=== PATIENT | female | born 1950 | race Caucasian/White ===

== ENCOUNTER 2017-02-17 14:04 | Emergency (ER) | payer OTHER ==
[~2017-02-17] VITALS: Ht 154.9 cm; Wt 112.0 kg
[~2017-02-17 14:04] MED LIST: CALC-1118 PO; METF500T PO; SYN.075 PO
[2017-02-17 14:13] VITALS: BP 158/72
--- NOTE | 2017-02-17 15:54 | NUR ---
Patient ambulated to bed 03.
--- NOTE | 2017-02-17 16:00 | NUR ---
67F BIB SELF C/O LEFT LEG PAIN S/P FALL X 5 DAYS AGO; PT STATES FELL ON A STAGE AT [facility]; DENIES LOC AT THIS TIME; BRUISE NOTED TO LEFT CALF AT THIS TIME; PT C/O ACHING LEFT LEG PAIN, NON-RADIATING, 6/10 X 5 DAYS. LEFT CAP REFILL < 3 SECONDS, LEFT PEDAL PULSE PALPABLE, NO LOSS OF SENSATION TO TO LEFT LEG AT THIS TIME; PT A&OX4, PERRL, BL LUNG SOUNDS CLEAR, RR EVEN/UNLABORED, SKIN IS WARM/DRY/INTACT AT THIS TIME; PT DENIES N/V/D AT THIS TIME; PT RESTING IN BED W/ HOB ELEVATED AND IN LOWEST POSITION; POSITIONED FOR COMFORT; ER MD MADE AWARE OF STATUS. WILL CONTINUE TO MONITOR.
--- NOTE | 2017-02-17 16:00 | NUR ---
Note undone in EDM - 02/17/17 at 1611 by MEDREJI 67F BIB SELF C/O LEFT LEG PAIN S/P FALL X 5 DAYS AGO; PT STATES FELL ON A STAGE AT [facility]; DENIES LOC AT THIS TIME; BRUISE NOTED TO LEFT CALF AT THIS TIME; LEFT CAP REFILL < 3 SECONDS, LEFT PEDAL PULSE PALPABLE, NO LOSS OF SENSATION TO TO LEFT LEG AT THIS TIME; PT A&OX4, PERRL, BL LUNG SOUNDS CLEAR, RR EVEN/UNLABORED, SKIN IS WARM/DRY/INTACT AT THIS TIME; PT DENIES N/V/D AT THIS TIME; PT RESTING IN BED W/ HOB ELEVATED AND IN LOWEST POSITION; POSITIONED FOR COMFORT; ER MD MADE AWARE OF STATUS. WILL CONTINUE TO MONITOR.
--- NOTE | 2017-02-17 17:19 | NUR ---
Dr. Valiente evaluating patient at bedside.
[2017-02-17 17:31] VITALS: BP 148/58
--- NOTE | 2017-02-17 17:31 | NUR ---
Patient discharged with v/s stable. Written and verbal after care instructions given and explained. Patient verbalized understanding. Ambulatory with steady gait. All questions addressed prior to discharge. Advised to follow up with PMD.
== END 2017-02-17 17:31 | disposition home or self-care (01) ==
LOC: MED 14:04
DX: S80.02XA Contusion of left knee, initial encounter (principal); W19.XXXA Unspecified fall, initial encounter; Y93.89 Activity, other specified; Y92.89 Other specified places as the place of occurrence of the external cause; Y99.8 Other external cause status
CPT/HCPCS: 73562; 99284

== ENCOUNTER 2018-03-20 21:25 | Inpatient (IN) | payer OTHER ==
[~2018-03-20] VITALS: Ht 154.9 cm; Wt 120.7 kg
[~2018-03-20 21:25] MED LIST changes: -CALC-1118 PO; -METF500T PO
[2018-03-20 21:33] VITALS: BP 152/68
--- NOTE | 2018-03-20 21:37 | NUR ---
TO BED # 11 AMBULATORY, REPORT GIVEN TO FLORENCE SMITH.
--- NOTE | 2018-03-20 21:43 | NUR ---
pt c/o abd pain starting since 1830, describes it as 8/10 aching epigastric pain. No complaints of N/V/D, LBM today. Hx of thyroid disorder. Patient placed in gown and monitor, will continue to assess.
--- NOTE | 2018-03-20 21:52 | NUR ---
Dr. Echeverria evaluating patient at bedside.
[2018-03-20] MEDS ORDERED: MORPHINE SULFATE 4 MG/ML SYR IVP ONE (21:55)
[2018-03-20] MEDS ORDERED: ONDANSETRON 4 MG/2 ML VIAL IVP ONE (21:55)
--- NOTE | 2018-03-20 22:14 | NUR ---
No dalton in [facility] - 03/20/18 at 2216 by ROBINSON X-Ray at bedside.
[2018-03-20] MEDS ORDERED: DICYCLOMINE HCL LIQUID 20 MG, ALUMINUM HYD/MAG/SIMETHICONE 30 ML, LIDOCAINE VISCOUS 2% ... PO ONE ×3 (22:15)
--- NOTE | 2018-03-20 22:35 | NUR ---
X-Ray at bedside.
[2018-03-20 22:36] LABS: HEMATOCRIT 37.2 % (36-48); HEMOGLOBIN 12.5 g/dL (12.0-16.0); MEAN CORPUSCULAR HEMOGLOBIN 36 pg (27-31); MEAN CORPUSCULAR HGB CONC 34 g/dL (33-37); MEAN CORPUSCULAR VOLUME 105.7 fL (80-94); PLATELET COUNT (AUTO) 57 K/uL (140-450); RED BLOOD CELL COUNT(AUTO) 3.52 MIL/uL (4.20-5.40); RED CELL DISTRIBUTION WIDTH 14.6 % (11.6-13.7); WHITE BLOOD COUNT (AUTO) 7.7 K/uL (4.8-10.8)
[2018-03-20 22:43] LABS: APPEARANCE,URINE CLEAR (CLEAR); BILIRUBIN,URINE 1+ (NEGATIVE); BLOOD, URINE TRACE-I (NEGATIVE); COLOR,URINE YELLOW (YELLOW); LEUKOCYTE ESTERASE ,URINE NEGATIVE (NEGATIVE); NITRITE, URINE NEGATIVE (NEGATIVE); UGLUCOSE NEGATIVE (NEGATIVE)
[2018-03-20 22:45] LABS: CARBON DIOXIDE 27.8 mmol/L (21-32); CREATININE 0.7 mg/dL (0.6-1.3); POTASSIUM 3.8 mmol/L (3.5-5.1)
[2018-03-20 22:51] LABS: ALBUMIN 2.5 g/dL (3.4-5.0); TOTAL BILIRUBIN 4.2 mg/dL (0.0-1.0)
[2018-03-20 22:54] LABS: RBC,URINE 0-5 (RARE) /HPF (0-5); WBC,URINE 0-5 (RARE) /HPF (0-5)
[2018-03-20 22:55] LABS: CALCIUM OXALATE CRYSTALS,UR 0-10 /HPF (None Seen)
[2018-03-20 23:06] LABS: EOSINOPHILS % (MANUAL) 3 % (0-4); LYMPHOCYTES % (MANUAL) 20 % (20-46); MONOCYTES % (MANUAL) 8 % (5-12)
--- NOTE | 2018-03-20 23:33 | NUR ---
PT TO CT
--- NOTE | 2018-03-20 23:49 | NUR ---
PT RETURN FROM RADIOLOGY
--- NOTE | 2018-03-20 23:56 | NUR ---
Ultrasound at bedside.
--- NOTE | 2018-03-21 00:20 | NUR ---
PT HAD ONE EPISODE OF BILE EMESIS, NO NAUSEA NOTED.
[2018-03-21] MEDS ORDERED: ONDANSETRON 4 MG/2 ML VIAL IVP ONE (00:45)
--- NOTE | 2018-03-21 00:52 | NUR ---
PT HAD 1 EPISODE OF BILE EMESIS, C/O NAUSEA, MD MADE AWARE AND ZOFRAN ORDERED AND GIVEN.
--- NOTE | 2018-03-21 01:36 | NUR ---
PT STILL NAUSEUS, ER MD MADE AWARE.
[2018-03-21] MEDS ORDERED: HYDROcodone/APAP 7.5/325 MG 1 TAB PO PRN (02:50)
[2018-03-21] MEDS ORDERED: DOCUSATE SODIUM 100 MG GELCAP PO PRN (02:50)
[2018-03-21] MEDS ORDERED: ONDANSETRON 4 MG/2 ML VIAL IM/IVP PRN (02:50)
[2018-03-21] MEDS ORDERED: MORPHINE SULFATE 2 MG/ML SYR IVP PRN (02:50)
--- NOTE | 2018-03-21 02:51 | NUR ---
PT ON STRETCHER IN NO ACUTE DISTRESS, NO COMPLAINTS.
[2018-03-21 03:08] LABS: PROTHROMBIN TIME 14.4 secs (10.8-13.4)
--- NOTE | 2018-03-21 03:10 | NUR ---
Patient will be admitted to care of [facility]. Admited to TELE. Will go to room 121 B. Belongings list completed. Report to BRUCE SMITH.
[2018-03-21 03:19] LABS: CHOL/HDL RATIO 2.8 (1-4.5); MAGNESIUM 1.6 mg/dL (1.8-2.4); PHOSPHORUS 3.8 mg/dL (2.5-4.9); THYROID STIMULATING HORMONE 0.61 uIU/mL (0.34-3.74)
--- NOTE | 2018-03-21 03:20 | NUR ---
RECEIVED REPORT FROM ED NURSE. PT IN STABLE CONDITION. WILL CONTINUE TO MONITOR.
--- NOTE | 2018-03-21 03:25 | NUR ---
INITIAL ASSESSMENT COMPLETE. EYES 3MM TO 2MM BRISK REACTION PERRL. HEART SOUNDS S1 S2 NORMAL. LUNGS CLEAR BILATERALLY. BOWEL SOUNDS PRESENT X4 QUADRANTS. MIDLINE EPIGASTRIC PAIN WHEN PALPATING. SKIN WARM, DRY, AND INTACT. CAP REFILL < 3S. NO EDEMA PRESENT. PT STATES NO PAIN. EKG SHOWS NSR. VS STABLE. PT IN NO ACUTE DISTRESS. SAFETY MEASURES TAKEN. BED LOCKED IN LOW POSITION. CALL BORREGO WITHIN REACH. WILL CONTINUE TO MONITOR.
[2018-03-21] MEDS ORDERED: PROMETHAZINE 25 MG/ML VIAL IM PRN (03:30)
[2018-03-21] MEDS ORDERED: MAG SULF 2000 MG/WATER PREMIX 50 ML IV ONE (03:45)
[2018-03-21 04:00] VITALS: BP 120/44
[2018-03-21] MEDS: NACL 0.9% 1,000 ML IV SCH ×4 (04:05→16:07)
--- NOTE | 2018-03-21 04:10 | NUR ---
PRESCRIBED MAG FOR LEVEL OF 1.6. MAG GIVEN IV. PT TOLERATING WELL. WILL CONTINUE TO MONITOR.
[2018-03-21 06:39] LABS: ANION GAP 6.8 (8-16); CARBON DIOXIDE 29.1 mmol/L (21-32); CREATININE 0.7 mg/dL (0.6-1.3); POTASSIUM 3.9 mmol/L (3.5-5.1)
[2018-03-21 06:56] LABS: MAGNESIUM 1.7 mg/dL (1.8-2.4); PHOSPHORUS 3.9 mg/dL (2.5-4.9)
--- NOTE | 2018-03-21 07:09 | NUR ---
ENDORSED PT TO DAY SHIFT RN FOR CONTINUITY OF CARE. PT IN STABLE CONDITION.
--- NOTE | 2018-03-21 07:10 | NUR ---
PT IS AWAKE AND ORIENTED. INTRODUCED MYSELF AND UPDATED THE BOARD. IV ON R FA 20G, NS 150ML/HR INFUSING. SKIN INTACT. PT FREQUENTLY AMBULATES TO THE BATHROOM. WILL BE BACK TO ASSESS PT.
[2018-03-21 08:00] VITALS: BP 148/46
--- NOTE | 2018-03-21 08:00 | NUR ---
PT V/S WITHIN NORMAL RANGE. DENIES PAIN BUT IS NAUSEATED AND IS VOMITING. WILL GIVE ZOFRAN ALONG WITH MORNING MEDS. DR DISLA CALLED RE LABS. GAVE HIM INFORMATION.
[2018-03-21] MEDS: LEVOTHYROXINE 0.075 MG TAB PO SCH (08:31)
[2018-03-21] MEDS: FUROSEMIDE 20 MG TAB PO SCH (08:31)
--- NOTE | 2018-03-21 08:35 | NUR ---
ADMINISTERED MORNING MEDS. PT TOLERATED WELL. ADMINISTERED ZOFRAN FOR NAUSEA. EMESIS ABOUT 100ML. WILL CONTINUE TO MONITOR PT.
--- NOTE | 2018-03-21 08:51 | NUR ---
PATIENT HAS BEEN SCREENED AND CATEGORIZED HIGH NUTRITION RISK. PATIENT WILL BE SEEN WITHIN 1-2 DAYS OF ADMISSION. 03/21/18 -03/22/[address]
[2018-03-21] MEDS ORDERED: MAGNESIUM OXIDE 400 MG TAB PO SCH (09:11)
--- NOTE | 2018-03-21 09:29 | NUR ---
FAXED INITIAL REVIEW TO [facility] [phone] PHONE [phone]
--- NOTE | 2018-03-21 10:40 | NUR ---
PT VOMITED AGAIN. WILL GIVE PHENERGAN. WILL NEED TO ASK MD TO SWITCH FROM IM TO IVP. ONCE CHANGED. WILL GIVE. DR FARLEY IS WITH PT, ASSESSING PT. WILL CONTINUE TO MONITOR PT.
[2018-03-21] MEDS ORDERED: PROMETHAZINE 25 MG/ML VIAL IM/IVP PRN (11:05)
--- NOTE | 2018-03-21 11:50 | NUR ---
ADMINISTERED PHENERGAN. PT TOLERATED WELL. WILL F/U WITH PT.
[2018-03-21 12:00] VITALS: BP 112/44
--- NOTE | 2018-03-21 13:10 | NUR ---
VISITING WITH FAMILY. NO SIGNS OF DISTRESS. WILL CONTINUE TO MONITOR PT.
--- NOTE | 2018-03-21 15:16 | NUR ---
NO NAUSEA. NO PAIN. NO COMPLAINTS. RESTING COMFORTABLY. STILL AWAITING DR. MCINTOSH'S ARRIVAL. WILL CONTINUE TO MONITOR PT.
[2018-03-21 16:00] VITALS: BP 107/41
--- NOTE | 2018-03-21 19:00 | NUR ---
PT C/O PAIN IN ABD. ADMINISTERED NORCO. PT TOLERATED WELL. WILL CONTINUE TO MONITOR PT.
--- NOTE | 2018-03-21 19:15 | NUR ---
ENDORSED PT TO THE LAVATORY ATTENDANT NURSE AT BEDSIDE FOR CONTINUITY OF CARE. PT IS IN STABLE CONDITION.
--- NOTE | 2018-03-21 19:30 | NUR ---
RECEIVED PT REPORT AT BEDSIDE FROM DAYSFLFT NURSE FOR CONTINUITY OF CARE. PT AAOX4. NO S/S OF DISTRESS NO SOB. ON RA. PT IV NOTED RFA 20G NS 150ML. BED LOWERED CALL LIGHT WITHIN REACH WILL CONTINUE TO MONITOR.
[2018-03-21 20:00] VITALS: BP 120/49
--- NOTE | 2018-03-21 23:00 | NUR ---
PAIN MED EFFECTIVE PT SLEEPING
[2018-03-22] VITALS: BP 113/63
--- NOTE | 2018-03-22 00:10 | NUR ---
PER CHARGE NURSE: GI DR NEED TO DO SX. WILL CONTINUE TO MONITOR.
[2018-03-22] MEDS: NACL 0.9% 1,000 ML IV SCH ×2 (01:35→08:00)
--- NOTE | 2018-03-22 01:48 | NUR ---
PT SLEEPING. NO SOB NO S/S OF DISTRESS. WILL CONTINUE TO MONITOR.
[2018-03-22 04:00] VITALS: BP 103/37
--- NOTE | 2018-03-22 07:20 | NUR ---
GAVE REPORT TO DAYSHIFT NURSE FOR CONTINUITY OF CARE.
--- NOTE | 2018-03-22 07:40 | NUR ---
PATIENT AWAKE, ALERT. RESPIRATION EVEN, UNLABOR ON ROOM AIR. SKIN DRY AND WARM. IV IS INFILTRATED, IVF WAS STOPPED, WILL INSERT A NEW ONE. DENIED ABDOMINAL PAIN, N/V AT THIS TIME. PLAN OF CARE WAS DISCUSSED WITH PATIENT, BED AT LOW POSITION, SIDE RAILS UP. CALL LIGHT WITHIN REACH.
[2018-03-22 08:00] VITALS: BP 129/52
[2018-03-22] MEDS: FUROSEMIDE 20 MG TAB PO SCH (08:52)
[2018-03-22] MEDS: LEVOTHYROXINE 0.075 MG TAB PO SCH (08:52)
--- NOTE | 2018-03-22 10:00 | NUR ---
IV WAS REMOVED FROM RIGHT FA, CATHETER INTACT, NO ACTIVE BLEEDING SEEN. PATIENT TOLERATED WELL
--- NOTE | 2018-03-22 10:01 | NUR ---
FAXED CONCURRENT REVIEW TO [facility] [phone] PHONE [phone]
[2018-03-22 11:36] LABS: BASOPHILS % (AUTO) 1.1 % (0.0-2.0); EOSINOPHILS # (AUTO) 0.2 K/uL (0-0.4); EOSINOPHILS % (AUTO) 4.6 % (0.0-4.0); HEMATOCRIT 33.5 % (36-48); HEMOGLOBIN 11.2 g/dL (12.0-16.0); LYMPHOCYTES # (AUTO) 1.1 K/uL (2.5-16.5); LYMPHOCYTES % (AUTO) 28.1 % (20.5-51.1); MEAN CORPUSCULAR HEMOGLOBIN 36 pg (27-31); MEAN CORPUSCULAR HGB CONC 34 g/dL (33-37); MEAN CORPUSCULAR VOLUME 107.5 fL (80-94); MONOCYTES # (AUTO) 0.7 K/uL (0.8-1.0); MONOCYTES % (AUTO) 18.1 % (1.7-9.3); NEUTROPHILS # (AUTO) 1.9 K/uL (1.8-7.7); NEUTROPHILS % (AUTO) 48.1 % (42.2-75.2); PLATELET COUNT (AUTO) 47 K/uL (140-450); RED BLOOD CELL COUNT(AUTO) 3.12 MIL/uL (4.20-5.40); RED CELL DISTRIBUTION WIDTH 14.8 % (11.6-13.7)
--- NOTE | 2018-03-22 11:38 | NUR ---
PATIENT AWAKE, ALERT. RESPIRATION EVEN, UNLABOR ON ROOM AIR. SKIN DRY AND WARMM. VS IS STABLE. DENIED PAIN, N/V. NO DISTRESS NOTED AT THIS TIME. CALL LIGHT WITHIN REACH
[2018-03-22 11:45] LABS: ANION GAP 8.1 (8-16); CARBON DIOXIDE 29.8 mmol/L (21-32); CREATININE 0.8 mg/dL (0.6-1.3); POTASSIUM 3.9 mmol/L (3.5-5.1)
[2018-03-22 12:00] VITALS: BP 121/68
[2018-03-22 12:20] LABS: T4 (THYROXINE) 7.2 ug/dL (4.5-12.0)
[2018-03-22] MEDS ORDERED: BOWEL EVACUANT DRINK 4,000 ML PDS PO SCH (12:44)
[2018-03-22] MEDS ORDERED: MAGNESIUM CITRATE 300 ML BTL PO SCH (12:45)
--- NOTE | 2018-03-22 13:19 | NUR ---
CALLED [facility] AND SPOKE WITH LUPE. I ASKED TO TO TELL KASHIF THAT THIS PATIENT WILL BE HAVING A HIDA SCAN TODAY AND AN EGD AND COLONOSCOPY TOMORROW.. PHONE [phone].
--- NOTE | 2018-03-22 13:57 | NUR ---
PROCEDURE CONSENTS WERE OBTAINED AT BEDSIDE, SIGNED BY PATIENT. PATIENT VERBALIZED UNDERSTANDING RISKS AND BENEFITS OF PROCEDURES.
[2018-03-22] MEDS: SENNA 8.6 MG TAB PO SCH ×2 (14:12→17:11)
--- NOTE | 2018-03-22 14:47 | NUR ---
03/22/18 RD INITIAL ASSESSMENT COMPLETED PLEASE REFER TO NUTRITION ASSESSMENT UNDER CARE ACTIVITY FOR ESTIMATED NUTRITIONAL NEEDS. 1. CONTINUE FULL LIQUID DIET TOLERATED 2. PROVIDE NUTRITION EDUCATION FOR GALLSTONES AND CIRRHOSIS 3. RD TO FOLLOW-UP 2-3 DAYS, HIGH RISK GUSTAVO GAN, RD
[2018-03-22 16:00] VITALS: BP 133/44
--- NOTE | 2018-03-22 16:10 | NUR ---
PATIENT AWAKE, ALERT. RESPIRATION EVEN, UNLABOR ON ROOM AIR. SKIN DRY AND WARM. VS IS STABLE. DENIED PAIN, N/V AT THIS TIME. NO DISTRESS NOTED. FAMILY AT BEDSIDE. CALL LIGHT WITHIN REACH
--- NOTE | 2018-03-22 18:27 | NUR ---
PATIENT IS AWAKE, ALERT. RESPIRATION EVEN, UNLABOR ON ROOM AIR. NO DISTRESS NOTED AT THIS TIME. CALL LIGHT WITHIN REACH
--- NOTE | 2018-03-22 19:25 | NUR ---
ENDORSEMENT GIVEN TO THE GETTERING FILAMENT MACHINE OPERATOR NURSE. PATIENT IS STABLE AT THIS TIME.
--- NOTE | 2018-03-22 19:26 | NUR ---
RECEIVED REPORT FROM DAYSHIFT NURSE AT BEDSIDE FOR CONTINUITY OF CARE. PT IS AAOX4. IV NOTED LAC20 HEP LOCK. NO SOB NO S/S OF DISTRESS. ON RA. PT IS AMBULATORY. BED LOWERED CALL LIGHT WITHIN REACH. WILL CONTINUE TO MONITOR.
[2018-03-22 20:00] VITALS: BP 151/52
[2018-03-22] MEDS: LACTULOSE 20 GM/30 ML UDC PO SCH (20:05)
--- NOTE | 2018-03-22 21:26 | NUR ---
PT SITTING IN BED FINISHING HER BOWEL PREP PT IS AWARE OF NPO AFTER MIDNIGHT.
[2018-03-23] VITALS (7 sets, daily range): BP systolic 114–146; BP diastolic 42–60
--- NOTE | 2018-03-23 00:30 | NUR ---
PT IS SLEEPING. NO SOB, NO S/S OF DISTRESS. WILL CONTINUE TO MONITOR.
[2018-03-23 06:36] LABS: BASOPHILS % (AUTO) 1.1 % (0.0-2.0); EOSINOPHILS # (AUTO) 0.3 K/uL (0-0.4); EOSINOPHILS % (AUTO) 5.6 % (0.0-4.0); HEMATOCRIT 33.8 % (36-48); HEMOGLOBIN 11.5 g/dL (12.0-16.0); LYMPHOCYTES # (AUTO) 1.6 K/uL (2.5-16.5); LYMPHOCYTES % (AUTO) 35.1 % (20.5-51.1); MEAN CORPUSCULAR HEMOGLOBIN 36 pg (27-31); MEAN CORPUSCULAR HGB CONC 34 g/dL (33-37); MEAN CORPUSCULAR VOLUME 106.8 fL (80-94); MONOCYTES # (AUTO) 0.8 K/uL (0.8-1.0); NEUTROPHILS # (AUTO) 1.9 K/uL (1.8-7.7); NEUTROPHILS % (AUTO) 41.2 % (42.2-75.2); PLATELET COUNT (AUTO) 52 K/uL (140-450); RED BLOOD CELL COUNT(AUTO) 3.17 MIL/uL (4.20-5.40); RED CELL DISTRIBUTION WIDTH 14.8 % (11.6-13.7); WHITE BLOOD COUNT (AUTO) 4.6 K/uL (4.8-10.8)
[2018-03-23 06:57] LABS: CREATININE 0.7 mg/dL (0.6-1.3)
[2018-03-23 07:08] LABS: TOTAL BILIRUBIN 2.7 mg/dL (0.0-1.0)
--- NOTE | 2018-03-23 07:36 | NUR ---
GAVE REPORT TO DAYSHIFT NURSE AT BEDSIDE FOR CONTINUITY OF CARE.
--- NOTE | 2018-03-23 07:48 | NUR ---
PATIENT TAKEN OFF UNIT TO HAVE HIDA SCAN DONE AT THIS TIME, PT LEFT IN STABLE CONDITION.
--- NOTE | 2018-03-23 07:50 | NUR ---
RECEIVED A PHONE CALL FROM [email or web address], SHE WAS CALLING TO LET ME KNOW THE PATIENT WAS FEELING ANXIOUS AND WAS NOT ABLE TO DO THE HIDA. I LET HER KNOW I WOULD ASK THE DOCTOR IF HE COULD ORDER SOMETHING FOR ANXIETY.
[2018-03-23] MEDS ORDERED: LORazepam 2 MG/ML VIAL IM/IVP PRN (08:00)
--- NOTE | 2018-03-23 08:04 | NUR ---
PATIENT ENDORSED FROM SPOT CHECKER NURSE. PATIENT AWAKE AND IN BED, A&O X4, no notable distress. V/S TAKEN. EXPLAINED THAT SHE WILL BE GOING TO GI LAB THIS MORNING. ASKED ABOUT PLAN OF CARE. PLAN OF CARE REVIEWED AND TOLD IF SHE HAS ANY CONCERNS OR QUESTIONS TO LET HEALTH CARE TEAM KNOW SO APPROPRIATE EDUCATION AND REASSURANCES CAN BE GIVEN, PATIENT STATED, "OKAY THANK YOU".
--- NOTE | 2018-03-23 08:19 | NUR ---
WALKED OVER TO NUCLEAR MED TO ADMINISTER ATIVAN 1MG, IVP. PT TOLERATED WELL. PT PENDING TO HAVE HIDA SCAN DONE.
--- NOTE | 2018-03-23 08:50 | NUR ---
RECEIVED A PHONE CALL FROM [employer], SHE WAS CALLING TO LET ME KNOW THE PATIENT WAS FEELING ANXIOUS AND WAS NOT ABLE TO DO THE HIDA. I LET HER KNOW I WOULD ASK THE DOCTOR IF HE COULD ORDER SOMETHING FOR ANXIETY. Addendum: 03/23/18 at 0908 by Delma Nicole RN EPPS TIME ENTRY.
--- NOTE | 2018-03-23 09:35 | NUR ---
WALKED OVER TO [employer] [facility] TO ADMINISTER MORPHINE IVP FOR THE HIDA SCAN. PT TOLERATED WELL.
--- NOTE | 2018-03-23 09:53 | NUR ---
PATIENT STILL IN GI LAB, DUE MEDICATIONS WILL BE GIVEN WHEN PATIENT IS BACK IN ROOM.
--- NOTE | 2018-03-23 10:30 | NUR ---
PATIENT IN BED V/S STABLE 0/10 PAIN, RR 16, 130/55, 96% RA, 56 BPM (@ BASELINE), 98.1 F. 0900 MEDICATIONS GIVEN.
--- NOTE | 2018-03-23 10:45 | NUR ---
PATIENT RETURNED TO UNIT VIA WHEELCHAIR FROM HIDA SCAN. PT STABLE AT THIS TIME.
[2018-03-23] MEDS: LACTULOSE 20 GM/30 ML UDC PO SCH ×2 (10:54→20:30)
[2018-03-23] MEDS: SPIRONOLACTONE 50 MG TAB PO SCH (10:54)
[2018-03-23] MEDS: SENNA 8.6 MG TAB PO SCH ×2 (10:55→12:51)
[2018-03-23] MEDS: LEVOTHYROXINE 0.075 MG TAB PO SCH (10:55)
[2018-03-23] MEDS: FUROSEMIDE 20 MG TAB PO SCH (10:55)
--- NOTE | 2018-03-23 12:45 | NUR ---
PATIENT RESTING IN BED. DUE MEDICATION GIVEN. CALL LIGHT WITHIN REACH, PILLOW PLACED UNDER RIGHT ARM FOR COMFORT. TOLD THAT SHE IS SCHEDULED TO BE D/C TOMORROW AFTER GI PROCEDURES ARE COMPLETED. PATIENT CLAIMS SHE HAS NO QUESTIONS ABOUT PLAN OF CARE. WILL CONTINUE WITH HOURLY ROUNDS.
[2018-03-23] MEDS ORDERED: MIDAZOLAM 2 MG/2 ML VIAL ONE ×2 (13:58)
[2018-03-23] MEDS ORDERED: fentaNYL 0.05 MG/ML VIAL ONE (13:58)
[2018-03-23] MEDS ORDERED: diphenhydrAMINE 50 MG/ML VIAL ONE (13:59)
[2018-03-23 14:56] LABS: ALBUMIN 2.3 g/dL (3.4-5.0); BILIRUBIN,DIRECT 0.9 mg/dL (0.0-0.3); TOTAL BILIRUBIN 2.7 mg/dL (0.0-1.0)
[2018-03-23] MEDS ORDERED: fentaNYL 0.05 MG/ML VIAL IVP ONE (15:00)
[2018-03-23] MEDS ORDERED: MIDAZOLAM 2 MG/2 ML VIAL IVP ONE (15:00)
--- NOTE | 2018-03-23 15:08 | NUR ---
Clinical review faxed to Mily at [phone] Addendum: 03/23/18 at 1511 by Zaria Gonzalez CM correction of the phone number. faxed to [facility]ily at [phone]
--- NOTE | 2018-03-23 15:10 | NUR ---
RECEIVED PATIENT TO UNIT FROM GI NURSE. PATIENT IS RESTING IN BED IN HIGH FOWLERS. PLACED ON O2 @ 2L/MIN NC FOR COMFORT. PATIENT IS DROWSY BUT AROUSAL WILL CONTINUE TO MONITOR V/S Q 15 FOR THE FIRST HOUR THAN PRN. CALL LIGHT WITHIN REACH, BED IN LOWEST POSITION, AND TWO SIDE RAILS UP. WILL CONTINUE HOURLY ROUNDS. Addendum: 03/23/18 at 1537 by Lesvia Welch RN ABDOMEN IS DISTENDED AND FIRM. PATIENT IS PASSING GAS. EDUCATED TO PASS GAS TO HELP RELIEVE PAIN.
--- NOTE | 2018-03-23 15:50 | NUR ---
RECEIVED PHONE CALL FROM DR. MCINTOSH. PER DR. MCINTOSH PT SHOWED GO HOME ON THESE MEDICATIONS: PROTONIX OR OMEPRAZOLE 40MG, PO, DAILY, LASIX 20MG, PO 1 TAB DAILY, ALDACTONE 50MG, PO 1 TAB DAILY, LACTULOSE 20GM PO BID, PROPANOLOL 30MG TID.
--- NOTE | 2018-03-23 16:55 | NUR ---
PATIENT HAD 2 BM. 1ST: WATERY AND LIGHT BROWN. 2ND: FORMED AND BROWN. ABDOMEN IS SOFT BUT STILL DISTENDED. PATIENT IS STILL PASSING GAS. ORDERED DINNER AND WAS TAKEN OFF O2 @ 2L/MIN. PATIENT V/S ARE STABLE AND SHE IS ALERT AND ORIENTATED X4. WILL CONTINUE TO MONITOR. Addendum: 03/23/18 at 1657 by Lesvia Welch RN PATIENT AMBULATED TO RESTROOM 2 TIMES AND TOLERATED WELL
--- NOTE | 2018-03-23 17:28 | NUR ---
WILL CONTINUE PLAN OF CARE Addendum: 03/23/18 at 1729 by Lesvia Welch RN Amended: Links added.
--- NOTE | 2018-03-23 18:45 | NUR ---
PATIENT CLAIMS IV SITE ON LEFT AC WAS BURNING AND PATIENT ASKED TO REMOVE SALINE LOCK TO A DIFFERENT LOCATION. IV SITE IS BECOMING RED AND SWOLLEN, SLIGHT ECCHYMOSIS NOTED. IV IN LEFT AC REMOVED, CATH INTACT AND BLEEDING CONTROLLED. NEW IV STARTED ON RIGHT HAND, 24 GAUGE, AND PATENT. PATIENT ATE 75% OF DINNER AND CONTINUES TO PASS GAS.
--- NOTE | 2018-03-23 19:15 | NUR ---
PATIENT ENDORSED TO CUSTOMER SUPPORT TECHNICIAN NURSE. WILL CONTINUE PLAN OF CARE. PATIENT CLAIMS SHE HAS NO QUESTIONS REGARDING HER PLAN OF CARE.
--- NOTE | 2018-03-23 19:17 | NUR ---
RECEIVED PT IN STABLE CONDITION FROM AM NURSE. AWAKE.ALERT AND ORIENTED X4. ON TELE MONITOR. AMBULATORY. WITH NO C/O ANY PAIN NOTED. HAS HL ON THE RT HAND#24. CLEAR AND PATENT. SKIN INTACT. PLAN OF CARE DISCUSSED AND VERBALIZED UNDERSTANDING. BED ON LOW POSITION. CALL LIGHT PLACED WITHIN EASY REACH. WILL CONTINUE TO MONITOR.
--- NOTE | 2018-03-23 21:15 | NUR ---
MADE ROUNDS. PT ASLEEP. NO S/S OF ANY DISCOMFORT NOR PAIN NOTED. WILL CONTINUE TO MONITOR.
--- NOTE | 2018-03-23 23:00 | NUR ---
SLEEPING . NO S/S OF ANY PAIN NOTED. WILL CONTINUE TO MONITOR.
--- NOTE | 2018-03-24 02:00 | NUR ---
MADE ROUNDS. PT IS ASLEEP. NO DISTRESS NOR DISCOMFORT NOTED.
--- NOTE | 2018-03-24 03:55 | NUR ---
DR. VITAL, RESIDENT CAME AND GAVE THE LIST OF MEDICATIONS THAT DR. MCINTOSH WANTS THE PT TO TAKE AT HOME.
[2018-03-24 03:57] VITALS: BP 132/56
--- NOTE | 2018-03-24 04:00 | NUR ---
NO C/O ANY DISCOMFORT NOR PAIN DURING THE NIGHT. WILL CONTINUE TO MONITOR.
[2018-03-24 06:36] LABS: BASOPHILS # (AUTO) 0.1 K/uL (0.00-0.22); BASOPHILS % (AUTO) 0.9 % (0.0-2.0); EOSINOPHILS # (AUTO) 0.3 K/uL (0-0.4); EOSINOPHILS % (AUTO) 4.8 % (0.0-4.0); LYMPHOCYTES # (AUTO) 1.8 K/uL (2.5-16.5); LYMPHOCYTES % (AUTO) 29.7 % (20.5-51.1); MEAN CORPUSCULAR HEMOGLOBIN 37 pg (27-31); MEAN CORPUSCULAR HGB CONC 34 g/dL (33-37); MEAN CORPUSCULAR VOLUME 107.4 fL (80-94); MONOCYTES # (AUTO) 0.9 K/uL (0.8-1.0); NEUTROPHILS % (AUTO) 49.6 % (42.2-75.2); PLATELET COUNT (AUTO) 60 K/uL (140-450); RED BLOOD CELL COUNT(AUTO) 3.26 MIL/uL (4.20-5.40)
[2018-03-24 06:54] LABS: ANION GAP 8.1 (8-16); CARBON DIOXIDE 30.6 mmol/L (21-32); CREATININE 0.8 mg/dL (0.6-1.3); POTASSIUM 3.7 mmol/L (3.5-5.1)
--- NOTE | 2018-03-24 07:10 | NUR ---
ENDORSED PT IN STABLE CONDITION TO AM NURSE.
[2018-03-24 07:32] LABS: MAGNESIUM 1.8 mg/dL (1.8-2.4); PHOSPHORUS 4.2 mg/dL (2.5-4.9)
--- NOTE | 2018-03-24 07:45 | NUR ---
PATIENT AWAKE, ALERT, EATING BREAKFAST. RESPIRATION EVEN, UNLABOR ON ROOM AIR. SKIN DRY AND WARM. IV PATENT AND INTACT. DENIED PAIN, N/V AT THIS TIME. PLAN OF CARE WAS DISCUSSED WITH PATIENT. BED AT LOW POSITION, SIDE RAILS UP. CALL LIGHT WITHIN REACH.
[2018-03-24 08:00] VITALS: BP 153/57
[2018-03-24] MEDS: LEVOTHYROXINE 0.075 MG TAB PO SCH (08:52)
[2018-03-24] MEDS: SPIRONOLACTONE 50 MG TAB PO SCH (08:52)
[2018-03-24] MEDS: FUROSEMIDE 20 MG TAB PO SCH (08:52)
[2018-03-24] MEDS: LACTULOSE 20 GM/30 ML UDC PO SCH ×2 (08:52→21:20)
[2018-03-24] MEDS ORDERED: SIMETHICONE 80 MG TAB.CHEW PO PRN (09:10)
--- NOTE | 2018-03-24 11:45 | NUR ---
PATIENT WAS SLEEPING COMFORTABLY, EASILY AROUSABLE BY NAME. RESPIRATION EVEN, UNLABOR ON ROOM AIR. SKIN DRY AND WARM. VS IS STABLE. DENIED PAIN, N/V. NO DISTRESS NOTED. CALL LIGHT WITHIN REACH
[2018-03-24 12:00] VITALS: BP 118/45
[2018-03-24] MEDS ORDERED: PANTOPRAZOLE 40 MG TABEC PO SCH (12:30)
[2018-03-24] MEDS: ACETAMINOPHEN 325 MG TAB PO PRN ×2 (12:41→21:20)
[2018-03-24] MEDS: PROPRANOLOL 20 MG TAB PO SCH ×2 (12:41→16:26)
--- NOTE | 2018-03-24 13:04 | NUR ---
1890 RECEIVED CALL FROM KAILYN CORADO AT [facility] AND PROVIDED HER WITH VERBAL UPDATE THAT PT HAD EGD AND COLONOSCOPY YESTERDAY AND WAS STARTED ON NEW MEDICATIONS. KAILYN INQUIRED REGARDING DISCHARGE AND INFORMED HER WILL CHECK WITH PHYSICIAN AND CALL HER BACK. KAILYN'S PHONE [phone] AND FAX [phone]
--- NOTE | 2018-03-24 14:19 | NUR ---
PATIENT IS SLEEPING COMFORTABLY, EASILY AROUSABLE BY NAME. RESPIRATION EVEN, UNLABOR ON ROOM AIR. DENIED PAIN, SOB, CP AT THIS TIME. NO DISTRESS NOTED. CALL LIGHT WITHIN REACH
--- NOTE | 2018-03-24 15:30 | NUR ---
PATIENT WAS SLEEPING COMFORTABLY, EASILY AROUSABLE BY NAME. RESPIRATION EVEN, UNLABOR ON ROOM AIR. DENIED PAIN, SOB AT THIS TIME. NO DISTRESS NOTED. CALL LIGHT WITHIN REACH
[2018-03-24 16:00] VITALS: BP 120/42
--- NOTE | 2018-03-24 16:45 | NUR ---
PATIENT IS AMBULATING AROUND THE HALLWAY WITH FAMILY, STEADY GAIT. NO DISTRESS NOTED.
--- NOTE | 2018-03-24 17:53 | NUR ---
PATIENT AWAKE, ALERT, EATING DINNER. RESPIRATION EVEN, UNLABOR ON ROOM AIR. NO DISTRESS NOTED AT THIS TIME. CALL LIGHT WITHIN REACH
--- NOTE | 2018-03-24 19:35 | NUR ---
ENDORSEMENT GIVEN TO THE DIET TECH NURSE. PATIENT IS STABLE AT THIS TIME
--- NOTE | 2018-03-24 19:38 | NUR ---
RECEIVED REPORT AT PT BEDSIDE FROM PROMOTIONAL MARKETING AGENT, FOR CONTINUITY OF CARE. PATIENT IS A/OX4 ON ROOM AIR. ABLE TO MAKE NEEDS KNOWN, ABLE TO FOLLOW COMMANDS. PT SKIN IS INTACT. PATIENT HAS IV TO LEFT HAND, ASYMPTOMATIC, INTACT, PATENT. RESPIRATIONS EVEN AND UNLABORED. UPDATED BOARD. VITAL SIGNS WITHIN NORMAL LIMITS. PT STABLE, NO SIGNS OF DISTRESS NOTED AT THIS TIME. BED IN LOWEST POSITION, BED ALARM ON. CALL LIGHT WITHIN REACH, WILL CONTINUE TO MONITOR.
[2018-03-24 20:00] VITALS: BP 114/60
--- NOTE | 2018-03-24 21:20 | NUR ---
ADMINISTERED SCHEDULED MEDICATIONS, PT TOLERATED WELL. PT STABLE, NO SIGNS OF DISTRESS NOTED AT THIS TIME. BED IN LOWEST POSITION, BED ALARM ON. CALL LIGHT WITHIN REACH, WILL CONTINUE TO MONITOR.
[2018-03-25] VITALS: BP 114/61
--- NOTE | 2018-03-25 | NUR ---
VITAL SIGNS WITHIN NORMAL LIMITS. PT STABLE, NO SIGNS OF DISTRESS NOTED AT THIS TIME. BED IN LOWEST POSITION, BED ALARM ON. CALL LIGHT WITHIN REACH, WILL CONTINUE TO MONITOR.
[2018-03-25 04:00] VITALS: BP 125/59
[2018-03-25] MEDS ORDERED: PANTOPRAZOLE 40 MG TABEC PO SCH (06:30)
--- NOTE | 2018-03-25 06:32 | NUR ---
PT COMPLAINING OF HEARTBURN. IS AWARE.
[2018-03-25 06:41] LABS: BASOPHILS # (AUTO) 0.1 K/uL (0.00-0.22); BASOPHILS % (AUTO) 1.3 % (0.0-2.0); EOSINOPHILS # (AUTO) 0.3 K/uL (0-0.4); EOSINOPHILS % (AUTO) 7.3 % (0.0-4.0); HEMATOCRIT 32.3 % (36-48); LYMPHOCYTES # (AUTO) 1.3 K/uL (2.5-16.5); LYMPHOCYTES % (AUTO) 30.9 % (20.5-51.1); MEAN CORPUSCULAR HEMOGLOBIN 36 pg (27-31); MEAN CORPUSCULAR HGB CONC 34 g/dL (33-37); MEAN CORPUSCULAR VOLUME 106.7 fL (80-94); MONOCYTES # (AUTO) 0.6 K/uL (0.8-1.0); MONOCYTES % (AUTO) 15.2 % (1.7-9.3); NEUTROPHILS # (AUTO) 1.9 K/uL (1.8-7.7); NEUTROPHILS % (AUTO) 45.3 % (42.2-75.2); PLATELET COUNT (AUTO) 46 K/uL (140-450); RED BLOOD CELL COUNT(AUTO) 3.03 MIL/uL (4.20-5.40); RED CELL DISTRIBUTION WIDTH 14.6 % (11.6-13.7); WHITE BLOOD COUNT (AUTO) 4.2 K/uL (4.8-10.8)
[2018-03-25 06:55] LABS: ANION GAP 6.9 (8-16); CARBON DIOXIDE 29.8 mmol/L (21-32); CREATININE 0.7 mg/dL (0.6-1.3); POTASSIUM 3.7 mmol/L (3.5-5.1)
[2018-03-25 07:15] LABS: HEPATITIS A ANTIBODY IGM Negative (Negative); HEPATITIS B CORE AB TOTAL Negative (Negative); HEPATITIS B SURFACE ANTIBODY Non Reactive (.); HEPATITIS B SURFACE ANTIGEN Negative (Negative)
--- NOTE | 2018-03-25 07:22 | NUR ---
ENDORSED PT TO DAY SHIFT RN FOR CONTINUITY OF CARE. PT IN STABLE CONDITION.
--- NOTE | 2018-03-25 07:23 | NUR ---
RECEIVED REPORT FROM ACUPRESSURIST NURSE AT BEDSIDE FOR CONTINUITY OF CARE. PATIENT IS A/OX4 ON ROOM AIR. ABLE TO MAKE NEEDS KNOWN, ABLE TO FOLLOW COMMANDS. PT SKIN IS INTACT. PATIENT HAS IV TO LEFT HAND, ASYMPTOMATIC, INTACT, PATENT, SALINE LOCKED. RESPIRATIONS EVEN AND UNLABORED, PATIENT C/O OF HEARTBURN AT THIS TIME, WILL ASSESS AND MEDICATE. UPDATED BOARD. VITAL SIGNS WITHIN NORMAL LIMITS. PT STABLE, NO SIGNS OF DISTRESS NOTED AT THIS TIME. SAFETY PRECAUTION IN PLACE, BED IN LOWEST POSITION, CALL LIGHT WITHIN REACH, WILL CONTINUE TO MONITOR PATIENT.
[2018-03-25] MEDS ORDERED: DICYCLOMINE HCL LIQUID 20 MG, ALUMINUM HYD/MAG/SIMETHICONE 30 ML, LIDOCAINE VISCOUS 2% ... PO SCH ×3 (07:30)
[2018-03-25 08:00] VITALS: BP 136/53
[2018-03-25] MEDS: LEVOTHYROXINE 0.075 MG TAB PO SCH (08:04)
[2018-03-25] MEDS: SPIRONOLACTONE 50 MG TAB PO SCH (08:04)
[2018-03-25] MEDS: LACTULOSE 20 GM/30 ML UDC PO SCH (08:04)
[2018-03-25] MEDS: FUROSEMIDE 20 MG TAB PO SCH (08:04)
--- NOTE | 2018-03-25 08:04 | NUR ---
ADMINISTERED ORDERED MEDICATIONS, PATIENT TOLERATED IT WELL. INDERAL NOT GIVEN DUE TO DECREASED PULSE OF 47. NO SIGNS OF DISTRESS OR SOB NOTED ON ROOM AIR. PATIENT C/O HEARTBURN, DOCTOR MARTINE ORDERED GI COCKTAIL, PATIENT TOLERATED IT WELL. SAFETY PRECAUTION IN PLACE, CALL LIGHT WITHIN REACH, WILL CONTINUE TO MONITOR PATIENT.
[2018-03-25] MEDS ORDERED: LACT10SO11 PO (08:13)
[2018-03-25] MEDS ORDERED: SPIR50TA PO (08:13)
[2018-03-25] MEDS ORDERED: PROP20TA29 PO (08:13)
[2018-03-25] MEDS ORDERED: PANT40EC28 PO (08:13)
[2018-03-25] MEDS ORDERED: FURO20TA8 PO (08:13)
--- NOTE | 2018-03-25 08:42 | NUR ---
PATIENT'S MAG LEVEL THIS MORNING WAS 1.5. DR. FARLEY AWARE. ORDER FOR MAG SULFATE 2000 MG IVPB IN. CALLED PHARMACY FOR VERIFICATION. MEDICATION ADMINISTERED. PATIENT TOLERATED IT WELL. NO SIGNS OF DISTRESS OR SOB NOTED ON ROOM AIR. PATIENT DENIES PAIN AT THIS TIME. SAFETY PRECAUTION IN PLACE, CALL LIGHT WITHIN REACH, WILL CONTINUE TO MONITOR PATIENT.
[2018-03-25] MEDS ORDERED: MAG SULF 2000 MG/WATER PREMIX 50 ML IV SCH (08:45)
[2018-03-25] MEDS: PROPRANOLOL 20 MG TAB PO SCH ×2 (09:00→13:00)
--- NOTE | 2018-03-25 09:32 | NUR ---
FAXED CONCURRENT REVIEW TO [facility] [phone] PHONE KASHIF [phone]
--- NOTE | 2018-03-25 10:30 | NUR ---
PATIENT RELAXING IN BED, FRIENDS AT BEDSIDE. NO SIGNS OF DISTRESS OR SOB NOTED ON ROOM AIR. PATIENT DENIES PAIN AT THIS TIME. PATIENT STATED THAT THE GI COCKTAIL WAS "AMAZING", IT HELPED WITH HER HEARTBURN. SAFETY PRECAUTION IN PLACE, CALL LIGHT WITHIN REACH, WILL CONTINUE TO MONITOR PATIENT.
--- NOTE | 2018-03-25 12:20 | NUR ---
PATIENT EATING LUNCH, FAMILY AT BEDSIDE. NO SIGNS OF DISTRESS OR SOB NOTED. PATIENT DENIES PAIN BUT STILL FEELS UNCOMFORTABLE DUE TO HEARTBURN. SAFETY PRECAUTION IN PLACE, CALL LIGHT WITHIN REACH. WILL CONTINUE TO MONITOR PATIENT.
--- NOTE | 2018-03-25 13:20 | NUR ---
PATIENT INQUIRED ABOUT HER GOLD NECKLACE STATING THAT IT WAS TAKEN OFF OF HER DURING HER EGD ON 03/22/18. RN ASKED NURSE WORKING THAT DAY AND OPERATING ROOM RNS. RN, CRYSTAL, STATED THAT NECKLACE WAS TAKEN OFF AND LEFT IN BEDSIDE TABLE NEAR PATIENT'S OTHER BELONGINGS WHICH ARE NO LONGER PRESENT. INQUIRED TO WHETHER OR NOT PATIENT'S TOOK IT HOME. PATIENT ASKED . HE STATED THAT HE KEPT IT FOR SAFE KEEPING.
[2018-03-25] MEDS ORDERED: PROP10TA28 PO (14:50)
--- NOTE | 2018-03-25 15:20 | NUR ---
DISCHARGE INSTRUCTION AND EDUCATION GIVEN TO PATIENT. PATIENT VERBALIZED UNDERSTANDING. IV REMOVED, IV CATHETER INTACT, MINIMAL BLOOD NOTED. ID BANDS REMOVED. PATIENT'S BROUGHT HER CLOTHING. SO PATIENT WILL NOW CHANGE INTO HER OWN CLOTHING AND PREPARE TO BE DISCHARGE.
--- NOTE | 2018-03-25 15:45 | NUR ---
PATIENT WHEELED OFF THE FLOOR ACCOMPANIED BY HER AND NERY, TESTING PROJECTS ADMINISTRATOR. PATIENT TOOK ALL HER BELONGINGS WITH HER. PATIENT IN STABLE CONDITION.
== END 2018-03-25 15:45 | disposition home or self-care (01) | DRG 432 ==
LOC: MED 21:25 → MTU 03-21 02:51
PROVIDERS: ADMIT Family Medicine; ATTEND Family Medicine
PROC: 0DB78ZX Excision of Stomach, Pylorus, Via Natural or Artificial Opening Endoscopic, Diagnostic (ICD-10-PCS; principal; 2018-03-21)
PROC: 06L38CZ Occlusion of Esophageal Vein with Extraluminal Device, Via Natural or Artificial Opening Endoscopic (ICD-10-PCS; 2018-03-21)
PROC: 0DJD8ZZ Inspection of Lower Intestinal Tract, Via Natural or Artificial Opening Endoscopic (ICD-10-PCS; 2018-03-21)
DX: K70.30 Alcoholic cirrhosis of liver without ascites (principal); E43 Unspecified severe protein-calorie malnutrition; K80.00 Calculus of gallbladder with acute cholecystitis without obstruction; D69.6 Thrombocytopenia, unspecified; E87.0 Hyperosmolality and hypernatremia; E66.01 Morbid (severe) obesity due to excess calories; I85.10 Secondary esophageal varices without bleeding; K76.6 Portal hypertension; E83.42 Hypomagnesemia; K72.00 Acute and subacute hepatic failure without coma; Z68.43 Body mass index [BMI] 50.0-59.9, adult; K21.9 Gastro-esophageal reflux disease without esophagitis; M94.0 Chondrocostal junction syndrome [Tietze]; B19.20 Unspecified viral hepatitis C without hepatic coma; K57.30 Diverticulosis of large intestine without perforation or abscess without bleeding; K64.8 Other hemorrhoids; K29.70 Gastritis, unspecified, without bleeding; E03.9 Hypothyroidism, unspecified; K31.89 Other diseases of stomach and duodenum; Z88.6 Allergy status to analgesic agent; Z88.5 Allergy status to narcotic agent; Z88.0 Allergy status to penicillin; Z88.8 Allergy status to other drugs, medicaments and biological substances; Z98.51 Tubal ligation status; Z79.4 Long term (current) use of insulin
CPT/HCPCS: 36415; 71045; 74150; 76705; 78445; 80048; 80053; 80076; 81001; 82150; 82247; 82248; 83036; 83690; 83735; 83880; 84100; 84436; 84443; 84479; 84484; 85025; 85610; 85730; 86677; 86704; 86706; 86708; 86709; 86803; 87081; 87340; 93005; 96374; 96375; 96376; 99285; J1200; J2060; J2250; J2270; J2405; J2550; J3010; J3475; J7030; Q0092

== ENCOUNTER 2018-04-19 | Emergency (ER) | payer OTHER ==
[~2018-04-19] VITALS: Ht 154.9 cm; Wt 111.6 kg
[~2018-04-19] MED LIST changes: +FURO20TA8 PO; +LACT10SO11 PO; +PANT40EC28 PO; +PROP10TA28 PO; +SPIR50TA PO
[2018-04-19 00:04] VITALS: BP 154/70
--- NOTE | 2018-04-19 00:15 | NUR ---
PATIENT TO ER BED 6.
--- NOTE | 2018-04-19 00:36 | NUR ---
68/F CAME IN ED, C/O ANXIETY AND NAUSEA X2 DAYS. PT DENIES VOMITING, FEVER, CP, SOB, OR COUGH AT THIS TIME; PATIENT POSITIONED FOR COMFORT; HOB ELEVATED; BEDRAILS UP X2; BED DOWN. ER MD AWARE.
[2018-04-19] MEDS ORDERED: LORazepam 1 MG TAB PO ONE (01:05)
[2018-04-19] MEDS ORDERED: ONDANSETRON 4 MG ODT PO ONE (01:05)
[2018-04-19 02:25] VITALS: BP 128/79
== END 2018-04-19 02:25 | disposition home or self-care (01) ==
LOC: MED
DX: F41.9 Anxiety disorder, unspecified (principal); K21.9 Gastro-esophageal reflux disease without esophagitis; I10 Essential (primary) hypertension; E03.9 Hypothyroidism, unspecified; Z86.19 Personal history of other infectious and parasitic diseases; Z88.0 Allergy status to penicillin; Z88.6 Allergy status to analgesic agent; Z88.8 Allergy status to other drugs, medicaments and biological substances
CPT/HCPCS: 99284; S0119